=== PATIENT | female | born 1995 | race Caucasian/White ===

== ENCOUNTER 2022-08-15 23:28 | Emergency (ER) | payer MEDICAID, SELFPAY ==
[2022-08-15 23:29] VITALS: BP 133/83; PULSE 62; RESP 16; TEMP 36.2; O2SAT 97; BMI 24.2
--- NOTE | 2022-08-16 00:06 | CT_ITS ---
EXAM: CT ABDOMEN AND PELVIS WITH INTRAVENOUS CONTRAST CLINICAL INDICATION: RLQ pain TECHNIQUE: Helically acquired images were obtained of the abdomen and pelvis with intravenous contrast. This CT exam was performed using one or more of the following dose reduction techniques: automated exposure control, adjustment of the mA and/or kV according to patient size, and/or use of iterative reconstruction technique. This report was created using [employer] report generation technology. CONTRAST: IV 100mL Isovue-370 RADIATION DOSE: Total DLP: 341.10 mGy-cm. COMPARISON: None. FINDINGS: LOWER THORAX: Unremarkable. Lung bases are clear. No significant pericardial effusion. No coronary artery calcifications visualized. ABDOMEN: LIVER: Unremarkable. Homogeneous. No focal mass. GALLBLADDER AND BILE DUCTS: Unremarkable. No calcified gallstones. No gallbladder distention or wall edema. No intra- or extrahepatic biliary ductal dilation. PANCREAS: Unremarkable. No focal cystic or solid mass. SPLEEN: Unremarkable. Normal size without focal cystic or solid mass. ADRENALS: Unremarkable. No nodules. KIDNEYS AND URETERS: Unremarkable. Normal renal size and position. No hydronephrosis. No renal or obstructing ureteral stones. STOMACH AND BOWEL: Moderate amount of formed stool throughout the colon. No stomach or bowel distention. No focal inflammatory change. PELVIS: APPENDIX: Normal. No evidence of acute appendicitis. BLADDER: Unremarkable. REPRODUCTIVE: Normal-sized uterus and ovaries. The left ovary contains a 2.3 cm ovoid thin-walled cystic focus with slight rim enhancement, consistent with an involuting ovarian cyst. ABDOMEN and PELVIS: INTRAPERITONEAL SPACE: Unremarkable. No ascites or other fluid collection. No free air. BONES/JOINTS: Unremarkable. No suspicious lytic or blastic abnormality. SOFT TISSUES: Unremarkable. No discrete abdominal or pelvic wall hernia. VASCULATURE: Abdominal aorta is non-dilated. 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 The distal duodenum is also compressed but there is no duodenal distention to indicate superior mesenteric artery syndrome. LYMPH NODES: Unremarkable. No enlarged lymph nodes. No clustered pericecal lymph nodes are seen. CT/Abdomen/Pelvis W IV Cont ONLY IMPRESSION: Normal appendix. Moderate amount of formed stool within the colon. Involuting left ovarian cyst. No findings of small bowel obstruction or obstructive uropathy. Electronically Signed: Artie Woodruff MD at 1:26 EST ,
[2022-08-16 00:15] LABS: Absolute Neutrophil Count 6.3 X10^3/uL (2.0-7.7); Eosinophil# 0.22 X10^3/uL; Eosinophils% 2.2 % (0-5); Hematocrit 41.1 % (37-47); Hemoglobin 13.6 g/dL (12.0-15.0); Lymphocyte % 27.7 % (19-41); Mean Corp Hgb Conc 33.1 g/dL (32-36); Mean Corpuscular Hgb 30.3 pg (27.0-32.0); Mean Corpuscular Volume 91.5 fL (81-99); Mean Platelet Vol. 11.2 fl (6.2-12.0); Monocyte# 0.65 X10^3/uL; Monocyte% 6.4 % (0-10); NRBC Flagged by Analyzer 0 % (0-5); Neutrophil # 6.32 X10^3/uL (2.7-7.7); Neutrophil % 62.4 % (47-70); Platelet Count 200 K/mm3 (150-450); RBC Distribution Width CV 12.9 % (11.6-14.6); RBC Distribution Width SD 43.2 fl (35.1-43.9); Red Blood Count 4.49 M/mm3 (4.2-5.4); White Blood Count 10.1 K/mm3 (4.4-11.0)
[2022-08-16 00:19] LABS: Color, Urine Yellow (Yellow); Glucose, Dipstick Normal (Normal); Ketone-Dipstick Negative (Negative); Leukocyte Esterase-Dipstick Negative /ul (Negative); Mucous, Urine 0 SEEN /hpf (<or=2+); Nitrite-Dipstick Negative (Negative); Occult Blood-Urine 10 /ul (Negative); Protein-Dipstick Negative (Negative); Specific Gravity, Urine 1.005 (1.002-1.030); Squamous Epithelial Cells - UA 0 SEEN /hpf (5-10); Urine Bilirubin Dipstick Negative (Negative); Urine Clarity Clear (Clear); Urine Urobilinogen Normal (Normal); White Blood Cells 0 SEEN /hpf (0-5)
[2022-08-16] MEDS: 0.9% Normal Saline 1,000 ML 999 ML IV (00:22)
[2022-08-16] MEDS: Ondansetron 4 MG/2 ML Vial IV (00:22)
[2022-08-16] MEDS: Ketorolac 30 MG/ML Syringe IV (00:23)
[2022-08-16 00:25] LABS: Bacteria RARE /hpf (None Seen); Red Blood Cells-Urine 0-5 SEEN /hpf (0-5)
[2022-08-16 00:33] LABS: AST(SGOT) 73 U/L (15-37); Alanine Aminotransfer ALT/SGPT 74 U/L (13-56); Alkaline Phosphatase 73 U/L (45-117); Anion Gap 4 (5-15); BUN 7 mg/dL (7-18); BUN/Creat Ratio 10.4 RATIO (10-20); Bilirubin, Direct 0.13 mg/dL (0.00-0.30); Calcium,Total 8.6 mg/dL (8.5-10.1); Chloride 108 mmol/L (98-107); Creatinine, Serum 0.67 mg/dL (0.55-1.02); EST Glomerular Filtration Rate 113 mL/min (>60); Est Glom Filt Rate - Afr Amer 137 mL/min (>60); Glucose 107 mg/dL (74-106); Lipase 136 U/L (73-393); Potassium 3.8 mmol/L (3.5-5.1); Sodium Level 140 mmol/L (136-145)
[2022-08-16 00:40] LABS: Internal QC Validated? YES +Cl - CLEAR BKGD; Pregnancy, Urine Negative Negative
--- NOTE | 2022-08-16 01:59 | EDS_ITS ---
HPI History of Present Illness Chief Complaint: Abd Pain Narrative Narrative: Patient is a 26-year-old female with past medical history of anxiety/depression with previous opioid and alcohol abuse currently on Vivitrol. She states that around 7:00 this evening she noticed some pain in her right lower abdomen. She states it came on mildly dull and then increased throughout the evening. She states that she has been nauseous associated with the pain but denies any vomiting. Patient denies any vaginal bleeding or dysuria or concern for . She denies any trauma or excessive activity prior to the pain beginning. She states that since the pain has steadily progressed she is concerned for possible intestinal infection and therefore comes in for evaluation [facility] Medical History (Updated 08/16/22 @ 03:[address] Moreno Longoria, DO) Alcohol abuse Anxiety Depression Heart murmur Home Medications buspirone 10 mg tablet 7.5 mg PO BID 08/15/22 [History Last Taken Unknown] lurasidone 20 mg tablet (Latuda) 20 mg PO DAILY 08/15/22 [History Last Taken Unknown] docusate sodium 100 mg capsule (Colace) 100 mg PO BID 7 days #14 caps 08/16/22 [Rx Last Taken Unknown] polyethylene glycol 3350 17 gram oral powder packet (Miralax) 17 g PO DAILY #30 ea 08/16/22 [Rx Last Taken Unknown] Allergy/AdvReac Type Severity Reaction Status Date / Time Penicillins Allergy Hives Verified 08/15/22 23:30 Social History Smoking Status: Current every day smoker tobacco type: cigarettes ROS ROS ED Constitutional Constitutional ED: Denies chills or fever(s) ENT ENT ED: Denies sore throat Cardiovascular Cardiovascular: Denies chest pain Respiratory/Chest Respiratory/Chest: Denies cough or dyspnea Gastrointestinal Gastrointestinal: Reports abdominal pain and nausea; Denies diarrhea or vomiting Genitourinary Genitourinary ED: Denies dysuria or hematuria Musculoskeletal Musculoskeletal: Denies back pain or myalgias Integumentary Denies rash Neurologic Neurologic: Denies headache(s) Hematologic/Lymphatic Hematologic/Lymphatic: Denies easy bleeding or easy bruising EXAM Physical Exam Const Vital Signs: 08/15/22 23:29 08/16/22 02:09 Temperature 97.2 F L Temperature Source Temporal Pulse Rate 62 Respiratory Rate 16 16 Blood Pressure 133/83 H Blood Pressure Mean 99 Pulse Ox 97 Oxygen Delivery Method Room Air Positive well nourished and well developed General Appearance ED: well developed HEENT Reports moist mucous membranes Eyes PERRL and EOMs intact bilaterally General Eye ED: Negative for scleral icterus Neck supple Resp normal respiratory effort and clear to auscultation bilaterally Cardio regular rate and regular rhythm Rate: other Other Details: Radial pulses are plus 2 out of 4 bilaterally are equal and symmetric GI non-distended GI Narrative: Abdomen is soft and nondistended with normoactive bowel sounds. Patient has pain with palpation in the right lower quadrant without voluntary guarding or rigidity. No pulsatile mass. Auscultation: normoactive bowel sounds Palpation: soft Back/Spine no CVA tenderness Extremity normal to inspection Neuro oriented x3 and CN's II-XII intact bilaterally Sensorium / Orientation: alert Psych mental status grossly normal Skin no rashes or lesions noted General Skin Exam: Negative for jaundice MDM MDM MDM Narrative Medical decision making narrative: Patient presented to the ER with stable vitals and a nonsurgical abdomen. However with her pain being in the right lower quadrant and slightly worsening over the last few hours there is concern she developed a atypical presentation for appendicitis ovarian cyst or possible kidney stone urinary tract infection. Therefore basic labs were obtained as well as a CT scan with IV contrast. Labs revealed no clinically significant findings. CT scan showed a left ovarian cyst but this would not explain her right-sided pain and there was also constipation noted. The appendix was seen and was noted to be normal. Therefore this time based on the location of her pain along with her overall negative work-up I feel this is probably related to constipation. With the CAT scan showing a left ovarian cyst but no right-sided 1 I do not feel there is need for emergent ultrasound. Patient will be given MiraLAX and Colace to help with constipation but as her work-up was overall negative and on reevaluation her abdomen remains soft and nonsurgical she is otherwise safe for discharge. Lab Data Attestation: I reviewed the patient's lab results. Labs: Laboratory Results - last 24 hr 08/15/22 08/15/22 08/16/22 23:39 23:39 00:12 WBC 10.1 RBC 4.49 Hgb 13.6 Hct 41.1 MCV 91.5 MCH 30.3 MCHC 33.1 RDW Std Deviation 43.2 RDW Coeff of Kalyn 12.9 Plt Count 200 MPV 11.2 Immature Gran % (Auto) 0.300 Neut % (Auto) 62.4 Lymph % (Auto) 27.7 Cooper % (Auto) 6.4 Eos % (Auto) 2.2 Baso % (Auto) 1.0 Absolute Neuts (auto) 6.3 Absolute Lymphs (auto) 2.80 Nucleated RBC % 0 Sodium 140 Potassium 3.8 Chloride 108 H Carbon Dioxide 28.0 Anion Gap 4 L BUN 7 Creatinine 0.67 Estim Creat Clear Calc 107.10 Est GFR (MDRD) Af Amer 137 Est GFR (MDRD) Non-Af 113 BUN/Creatinine Ratio 10.4 Glucose 107 H Calcium 8.6 Total Bilirubin 0.40 Direct Bilirubin 0.13 AST 73 H ALT 74 H Alkaline Phosphatase 73 Total Protein 7.0 Albumin 4.0 Globulin 3.0 Lipase 136 Urine Color Yellow Urine Clarity Clear Urine pH 7.0 Ur Specific [place] 1.005 Urine Protein Negative Urine Glucose (UA) Normal Urine Ketones Negative Urine Occult Blood 10 H Urine Nitrite Negative Urine Bilirubin Negative Urine Urobilinogen Normal Ur Leukocyte Esterase Negative Urine RBC 0-5 SEEN Urine WBC 0 SEEN Ur Squamous Epith Cells 0 SEEN Urine Bacteria RARE Urine Mucus 0 SEEN Urine Test 08/16/22 00:12 WBC RBC Hgb Hct MCV MCH MCHC RDW Std Deviation RDW Coeff of Kalyn Plt Count MPV Immature Gran % (Auto) Neut % (Auto) Lymph % (Auto) Cooper % (Auto) Eos % (Auto) Baso % (Auto) Absolute Neuts (auto) Absolute Lymphs (auto) Nucleated RBC % Sodium Potassium Chloride Carbon Dioxide Anion Gap BUN Creatinine Estim Creat Clear Calc Est GFR (MDRD) Af Amer Est GFR (MDRD) Non-Af BUN/Creatinine Ratio Glucose Calcium Total Bilirubin Direct Bilirubin AST ALT Alkaline Phosphatase Total Protein Albumin Globulin Lipase Urine Color Urine Clarity Urine pH Ur Specific [place] Urine Protein Urine Glucose (UA) Urine Ketones Urine Occult Blood Urine Nitrite Urine Bilirubin Urine Urobilinogen Ur Leukocyte Esterase Urine RBC Urine WBC Ur Squamous Epith Cells Urine Bacteria Urine Mucus Urine Test Negative Radiography Diagnostic Testing: Clinical Impression(s) from Imaging Studies Abdomen/Pelvis CT 08/16/22 00:06 IMPRESSION: Normal appendix. Moderate amount of formed stool within the colon. Involuting left ovarian cyst. No findings of small bowel obstruction or obstructive uropathy. Electronically Signed: Artie Woodruff MD at 1:26 EST , Discharge Plan Triage Chief Complaint: Abd Pain ED Provider: Moreno Longoria Dx/Rx/DC Orders Clinical Impression: Nonspecific abdominal pain, Constipation, Cyst of left ovary Instructions: Abdominal Pain, ED Constipation (Adult) Prescriptions: New polyethylene glycol 3350 [Miralax] 17 gram powder in packet 17 g PO DAILY Qty: 30 0RF docusate sodium [Colace] 100 mg capsule 100 mg PO BID 7 Days Qty: 14 0RF No Action buspirone [BuSpar] 10 mg Tablet 7.5 mg PO BID Latuda 20 mg Tablet 20 mg PO DAILY Rx Instructions: must administer with food (at least 350 calories) Primary Care Provider: Care Physician,No Primary Referrals: Ashlyn Watson, [Med Staff - [employer] Laboratory Assistant] - Care Physician,No Primary [Primary Care Provider] - Activity Restrictions/Additional Instructions: Your CT scan did not show any signs of acute appendicitis or kidney stone. It did show changes consistent with constipation. Please take the medication prescribed as directed to help with this. If you have any further concerns or worsening of symptoms please return to the ER for repeat evaluation. Disposition Disposition: Home, Self Care Discharge Date/Time: 08/16/22 02:14
[2022-08-16 02:09] VITALS: RESP 16
== END 2022-08-16 02:14 | disposition home or self-care (01) ==
PROVIDERS: Emergency Provider Emergency Medicine; Visit Provider Emergency Medicine
DX: R10.31 Right lower quadrant pain (principal); K59.00 Constipation, unspecified; N83.202 Unspecified ovarian cyst, left side; F32.A Depression, unspecified; F41.9 Anxiety disorder, unspecified; F17.210 Nicotine dependence, cigarettes, uncomplicated; Z79.899 Other long term (current) drug therapy
CPT/HCPCS: 74177; 80048; 80076; 81001; 81025; 83690; 85025; 96374; 96375; 99285; J7030; Q9967; J2405

== ENCOUNTER 2023-06-16 13:13 | Inpatient (IN) | payer MEDICAID, SELFPAY ==
[2023-06-16 13:14] VITALS: BP 162/100; PULSE 96; RESP 16; TEMP 36.4; O2SAT 98; BMI 23.3
--- NOTE | 2023-06-16 13:40 | EDS_ITS ---
HPI History of Present Illness Chief Complaint: Substance Abuse Informant: patient Onset/Context/Timing Onset: Yesterday Context: Gradual Onset Timing: Continuous Worsened by: Nothing Relieved by: Nothing Associated Symptoms Associated Symptoms: Positive for diarrhea*, palpatations and no; Negative for vomiting*, fever*, rash*, seizure, tremor, change in mental status, suicidal ideation or homicidal ideation Narrative Narrative: Presents requesting detox from alcohol. Patient states she drinks approximately 12 beers per day. Patient states her last drink was yesterday. Patient denies any nausea or vomiting but admits to some diarrhea. Patient admits to some palpitations. Patient denies any suicidal homicidal ideations. Patient denies any seizures or tremors. Patient denies any chance of . Patient states she has never been through detox in the past. PFSH PFSH Medical History Alcohol abuse Anxiety Anxiety and depression Depression Heart murmur Migraines Smoker Substance abuse Tobacco use Home Medications docusate sodium 100 mg capsule (Colace) 100 mg PO BID 7 days #14 caps 08/16/22 [Rx Last Taken Unknown] buspirone 10 mg tablet 10 mg PO BID anxiety 06/16/23 [History Last Taken Unknown] lurasidone 20 mg tablet (Latuda) 20 mg PO .hs depression 06/16/23 [History Last Taken Unknown] naltrexone microspheres 380 mg intramuscular suspension,extended release (Vivitrol) See Rx Instructions IM .COMPLEX 06/16/23 [History Last Taken Unknown] Allergy/AdvReac Type Severity Reaction Status Date / Time Penicillins Allergy Hives Verified 06/16/23 13:14 Family History (Updated 06/16/23 @ 14:[address] Verona Pickard MD) Mother COPD (chronic obstructive pulmonary disease) Alcohol abuse Opiate addiction Father Alcohol abuse Surgical History (Updated 06/16/23 @ 13:[address] Dariusz Rosas, DO) Hx of wisdom tooth extraction Social History (Updated 06/16/23 @ 14:[address] Verona Pickard MD) household members: other details: Her sister and her sister's father. Smoking Status: Current every day smoker tobacco type: cigarettes Smoking packs per day: 1 Smoking cigarettes per day: 20.0 alcohol intake: current alcohol intake frequency: 3 or more drinks per day details: 6 Tall boys daily or 12 regular beers daily substance use type: former substance user and marijuana ROS ROS ED Constitutional Constitutional ED: Denies chills or fever(s) Eyes Eyes: Denies blurry vision or change in vision ENT ENT ED: Denies rhinorrhea or sore throat Cardiovascular Cardiovascular: Reports palpitations and racing heartbeat; Denies chest pain Respiratory/Chest Respiratory/Chest: Denies cough or dyspnea Gastrointestinal Gastrointestinal: Reports diarrhea; Denies nausea or vomiting Genitourinary Genitourinary ED: Denies dysuria or hematuria Musculoskeletal Musculoskeletal: Denies back pain or neck pain Integumentary Denies abscess or rash Neurologic Neurologic: Denies headache(s) or weakness Allergic/Immunologic Allergic/Immunologic ED: Denies mouth swelling or urticaria EXAM Physical Exam Const Vital Signs: 06/16/23 13:14 Temperature 97.6 F L Temperature Source Temporal Pulse Rate 96 Respiratory Rate 16 Blood Pressure 162/100 H Blood Pressure Mean 120 Pulse Ox 98 Oxygen Delivery Method Room Air Positive well nourished and well developed General Appearance ED: well developed and NAD HEENT Reports moist mucous membranes Neck supple and no JVD Resp normal respiratory effort and clear to auscultation bilaterally Cardio regular rate and regular rhythm GI soft to palpation, non-tender and non-distended Extremity General Extremety ED: Negative for edema or tenderness General Extremity: Negative for edema Neuro oriented x3, CN's II-XII intact bilaterally and no sensory deficits noted [place] Coma Scale: document GCS findings Spontaneous Obeys Commands Oriented 15 Sensorium / Orientation: alert Speech: speech normal Motor Exam: strength 5/5 throughout Psych mental status grossly normal and thought process normal Skin General Skin Exam: Negative for jaundice MDM MDM MDM Narrative Medical decision making narrative: Screening labs will be obtained. CBC will be obtained to assess for leukocytosis and anemia. Comprehensive metabolic profile will be obtained to assess for hepatic function, renal function, and electrolyte abnormality. Urine tox screen will be obtained to assess for substance abuse. Serum alcohol level will be obtained to assess for alcohol intoxication. Serum hCG will be obtained to assess for . Lab Data Attestation: I reviewed the patient's lab results. Labs: Laboratory Results - last 24 hr 06/16/23 13:45 WBC 10.7 RBC 4.17 L Hgb 12.4 Hct 39.4 MCV 94.5 MCH 29.7 MCHC 31.5 L RDW Std Deviation 48.6 H RDW Coeff of Kalyn 14.0 Plt Count 223 MPV 10.7 Immature Gran % (Auto) 0.300 Neut % (Auto) 82.1 H Lymph % (Auto) 9.6 L [place] % (Auto) 6.5 Eos % (Auto) 0.7 Baso % (Auto) 0.8 Absolute Neuts (auto) 8.8 H Absolute Lymphs (auto) 1.02 Nucleated RBC % 0 Sodium 138 Potassium 3.8 Chloride 107 Carbon Dioxide 26.0 Anion Gap 5 BUN 4 L Creatinine 0.80 Estim Creat Clear Calc 88.93 Est GFR (MDRD) Af Amer 111 Est GFR (MDRD) Non-Af 92 BUN/Creatinine Ratio 5.0 L Glucose 99 Calcium 8.8 Phosphorus 2.9 Magnesium 2.0 Total Bilirubin 0.50 AST 19 ALT 21 Alkaline Phosphatase 68 Total Protein 6.7 Albumin 3.7 Globulin 3.0 Albumin/Globulin Ratio 1.2 Serum , Qual NEGATIVE Ethyl Alcohol < 3.0 Hep Bs Antigen Non-Reactive Hep Bs Antibody Non-Reactive Hepatitis C Antibody Non-Reactive HIV 1&2 Antibody Non-Reactive Management Discussion w/another healthcare provider: Hospitalist Treatment and Re-Evaluation Narrative: Case was discussed with the hospitalist. She will admit the patient to her service. Patient understood and was agreeable with the plan. All questions were answered. Discharge Plan Dx/Rx/DC Orders Clinical Impression: Desire for detoxification, Alcohol withdrawal Disposition Disposition: Acute Care Hospital [facility] Discharge Date/Time: 06/16/23 15:50
[2023-06-16 13:56] LABS: Absolute Lymphocyte Count 1.02 X10^3/uL (0.83-4.51); Absolute Neutrophil Count 8.8 X10^3/uL (2.0-7.7); Basophil# 0.08 X10^3/uL; Basophil% 0.8 % (0-1); Eosinophil# 0.07 X10^3/uL; Eosinophils% 0.7 % (0-5); Hematocrit 39.4 % (37-47); Hemoglobin 12.4 g/dL (12.0-15.0); Lymphocyte # 1.02 X10^3/ul (0.83-4.51); Lymphocyte % 9.6 % (19-41); Mean Corp Hgb Conc 31.5 g/dL (32-36); Mean Corpuscular Hgb 29.7 pg (27.0-32.0); Mean Corpuscular Volume 94.5 fL (81-99); Mean Platelet Vol. 10.7 fl (6.2-12.0); Monocyte# 0.69 X10^3/uL; Monocyte% 6.5 % (0-10); NRBC Flagged by Analyzer 0 % (0-5); Neutrophil # 8.76 X10^3/uL (2.7-7.7); Neutrophil % 82.1 % (47-70); Platelet Count 223 K/mm3 (150-450); RBC Distribution Width SD 48.6 fl (35.1-43.9); Red Blood Count 4.17 M/mm3 (4.2-5.4); White Blood Count 10.7 K/mm3 (4.4-11.0)
[2023-06-16 14:13] LABS: ALB/GLOB Ratio 1.2 RATIO (0.9-2.4); AST(SGOT) 19 U/L (15-37); Alanine Aminotransfer ALT/SGPT 21 U/L (13-56); Albumin, Serum 3.7 g/dL (3.2-5.0); Alkaline Phosphatase 68 U/L (45-117); Anion Gap 5 (5-15); BUN 4 mg/dL (7-18); Calcium,Total 8.8 mg/dL (8.5-10.1); Chloride 107 mmol/L (98-107); EST Glomerular Filtration Rate 92 mL/min (>60); Est Glom Filt Rate - Afr Amer 111 mL/min (>60); Estimated Creatinine Clearance 88.93 ml/min; Glucose 99 mg/dL (74-106); Potassium 3.8 mmol/L (3.5-5.1); Protein, Total 6.7 g/dL (6.4-8.2); Sodium Level 138 mmol/L (136-145)
--- NOTE | 2023-06-16 14:15 | CM.ED ---
Addendum entered by Terrie Carlin 06/16/23 19:23: Treatment Navigator updated. LEANDRO Dodd Original Note: Social Work Referral Source: case find Referral Reason: [facility]/ PCP SW met with patient and introduced self and role as [facility] SW. Patient lying on hospital bed and agreeable to speak with SW. SW inquired about patient's insurance and current PCP. Patient verified insurance and reports no current PCP. SW provided patient with a list of local PCPs in network with patient's insurance and accepting new patients. Patient was receptive towards list. SW then engaged patient in conversation regarding interest in [facility]. SW briefly reviewed rules including it being a voluntary program, personal belongings being locked up as well as meeting with the detox coordinator for after care planning. Patient reports understanding and states her current plan is to return to [facility] for their residential program. Patient reports no other questions or needs currently. SW remains available if needs arise. Plan: [facility] LEANDRO Dodd
[2023-06-16 14:18] LABS: Internal QC Validated? YES +Cl - CLEAR BKGD; Pregnancy, Serum, hCG Quali. NEGATIVE Negative
[2023-06-16 14:21] LABS: Alcohol, Blood (Medical)-Serum < 3.0 mg/dL
--- NOTE | 2023-06-16 14:53 | PCM.HP.STD ---
HPI - General General Date of Admission: 06/16/23 Date of Service: 06/16/23 Chief Complaint: Acute EtOH withdrawal symptoms onset. HPI Narrative The patient is a 27 y/o F w/ PMHx: Polysubstance abuse w/ history of Opiate abuse clean since 09/2022 and EtOH abouse (currently ~ 12 normal size beers or 6 tall boys daily x 5 months) and from prior records had been on Vivitrol which was confirmed (EtOH last use 2 am on day of presentation, Opiates last use 09/2022, using Cannabis smoked occasionally), Anxiety and Depression, Tobacco use who presents to the [facility] ED on 06/16/23 with ongoing EtOH abuse abuse with acute EtOH withdrawal, onset starting this early afternoon, progressively worsening with onset of nausea, mild tremors, restlessness, fatigue prompting ED evaluation. The patient is interested in attaining sober status. She was recently evaluated in [place] and was administered phenobarbital in the ED but there was no available slots for acute inpatient treatment thus she was discharged to follow-up with her substance program who sent her here today per her report. Work-up in the ED included T 97.6, HR 96, BP 162/100, RR 16, 98% on RA, CBC w/ WBC 10.7, Hgb 12.4, Plts 223 without marked shift, CMP no marked appearing, testing negative, EtOH <3, pending UDS upon requested evaluation of patient. [facility] Medical History Alcohol abuse Anxiety and depression Heart murmur Tobacco use Home Medications docusate sodium 100 mg capsule (Colace) 100 mg PO BID 7 days #14 caps 08/16/22 [Rx Last Taken Unknown] naltrexone microspheres 380 mg intramuscular suspension,extended release (Vivitrol) See Rx Instructions IM .COMPLEX 06/16/23 [History Last Taken Unknown] Allergy/AdvReac Type Severity Reaction Status Date / Time Penicillins Allergy Hives Verified 06/16/23 13:14 Family History (Updated 06/16/23 @ 14:[address] Verona Pickard MD) Mother COPD (chronic obstructive pulmonary disease) Alcohol abuse Opiate addiction Father Alcohol abuse Surgical History (Updated 06/16/23 @ 13:[address] Dariusz Rosas, DO) Hx of wisdom tooth extraction Social History (Updated 06/16/23 @ 14:[address] Verona Pickard MD) household members: other details: Her sister and her sister's father. Smoking Status: Current every day smoker tobacco type: cigarettes Smoking packs per day: 1 Smoking cigarettes per day: 20.0 alcohol intake: current alcohol intake frequency: 3 or more drinks per day details: 6 Tall boys daily or 12 regular beers daily substance use type: former substance user and marijuana ROS ROS Narrative Admission Review of Systems: CONSTITUTIONAL: No weight loss, fever, chills, + weakness or fatigue. HEENT: Eyes: No visual loss, blurred vision, double vision or yellow sclerae. Ears, Nose, Throat: No hearing loss, sneezing, congestion, runny nose or sore throat. SKIN: No rash or itching, lesions, wounds. CARDIOVASCULAR: No chest pain, chest pressure or chest discomfort, palpitations, edema, orthopnea, syncopal events. RESPIRATORY: No shortness of breath, cough or sputum, wheezing, hemoptysis. GASTROINTESTINAL: + anorexia, nausea. No vomiting or diarrhea, abdominal pain, melena, BRBPR. GENITOURINARY: No dysuria, frequency, urgency or retention. NEUROLOGICAL: + Mild tremors, mild tactile disturbances, restlessness. No headache, dizziness, syncope, paralysis, ataxia, numbness or tingling in the extremities, focal weakness, change in bowel or bladder control, seizure. MUSCULOSKELETAL: No muscle, back pain, joint pain or stiffness. HEMATOLOGIC: No anemia, bleeding or bruising. LYMPHATICS: No enlarged nodes. No history of splenectomy. PSYCHIATRIC: + history of depression or anxiety. ENDOCRINOLOGIC: + reports of sweating. No cold or heat intolerance. No polyuria or polydipsia. ALLERGIES: + history of hives. Vital Signs Vital Signs Vital Signs: 06/16/23 13:14 Temperature 97.6 F L Temperature Source Temporal Pulse Rate 96 Respiratory Rate 16 Blood Pressure 162/100 H Blood Pressure Mean 120 Pulse Ox 98 Oxygen Delivery Method Room Air Weight Weight: 132 lb Body Mass Index (BMI) 23.3 Physical Exam Narrative Physical Examination: General: Awake, alert, oriented x 3 and cooperative, seated upright in the ED bed, fatigued, mildly tremulous and restless. Skin: Normal color, normal turgor, no icterus, no cyanosis, several tattoos. HEENT: AT/NC, EOMI, PERRLA, moderately dry MM, no carotid bruits or JVD noted. Lungs: CTA bilaterally, moderate effort, mild decrease BL bases, no rales, ronchi or wheezing. Heart: Mildly tachyardic with regular rhythm; no gallop or rub audible. Abdomen: Soft, NTTP, ND, hyperactive BS, no marked appreciated HM. Extremities: No cyanosis, clubbing, or edema. Neurological: Patient awake, alert, oriented as noted, cognitive function intact; pupils equally reactive to light and accommodation, cranial nerves grossly normal, moving all 4 extremities, no focal deficits, strength mildly to moderately globally decreased secondary to acute presentation, mildly tremulous, mild tactile disturbances noted. Psychiatric: Affect appears fatigued, no acute evidence of depressive or anxiety feelings but does have underlying history. Results Lab / Micro Data 06/16/23 13:45 06/16/23 13:45 Labs: Laboratory Results - last 24 hr 06/16/23 13:45: WBC 10.7, RBC 4.17 L, Hgb 12.4, Hct 39.4, MCV 94.5, MCH 29.7, MCHC 31.5 L, RDW Std Deviation 48.6 H, RDW Coeff of Kalyn 14.0, Plt Count 223, MPV 10.7, Immature Gran % (Auto) 0.300, Neut % (Auto) 82.1 H, Lymph % (Auto) 9.6 L, Sampson % (Auto) 6.5, Eos % (Auto) 0.7, Baso % (Auto) 0.8, Absolute Neuts (auto) 8.8 H, Absolute Lymphs (auto) 1.02, Nucleated RBC % 0, Sodium 138, Potassium 3.8, Chloride 107, Carbon Dioxide 26.0, Anion Gap 5, BUN 4 L, Creatinine 0.80, Estim Creat Clear Calc 88.93, Est GFR (MDRD) Af Amer 111, Est GFR (MDRD) Non-Af 92, BUN/Creatinine Ratio 5.0 L, Glucose 99, Calcium 8.8, Total Bilirubin 0.50, AST 19, ALT 21, Alkaline Phosphatase 68, Total Protein 6.7, Albumin 3.7, Globulin 3.0, Albumin/Globulin Ratio 1.2, Serum , Qual NEGATIVE, Ethyl Alcohol < 3.0 Assessment & Plan Assessment/Plan (1) Alcohol withdrawal: PLAN: Plan The patient is a 27 y/o F w/ PMHx: Polysubstance abuse w/ history of Opiate abuse clean since 09/2022 and EtOH abuse, Anxiety and Depression, Tobacco use who presents to the [facility] ED on 06/16/23 with ongoing EtOH abuse abuse with acute EtOH withdrawal. #1. Acute EtOH Withdrawal: Will admit to medical surgical floor, routine labs obtained in the ED upon presentation as noted with penidng UDS only upon evaluation. Given interest in sobriety, will initiate and continue on protocol with taper course of Phenobarbital, scheduled gabapentin for seizure prophylaxis, as needed Catapres, Bentyl, Vistaril, IV fluids, IV antiemetics, Tylenol as needed for pain. Will consult Case management for assistance for transition to next level of rehabilitation care. Mag, phos pending. Maintain on CIWA protocol concurrently. #2. Elevated BP without HTN diagnosis: Notably elevated BP in the ED, suspect related with #1, will continue to monitor, PRN IV hydralazine in the interim. #3. Hx Opiate abuse in conjunction with #1: Will obtain HIV and hepatitis panel given polysubstance use although does denies current usage. Patient currently not candidate for hep C treatment currently as needs to be clean, sober x 6 months, documented attendance NA or AA meetings, counseling and ongoing negative drug screens. Encouraged cannabis cessation. UDS pending. Did of note receive at [place] ED phenobarbital. #4. Anxiety and depression: Patient from previous records 08/2022 had been on buspirone and Latuda, clarifying if this is still correct, will continue once verified. #5. Chronic constipation: Patient with ED visit secondary to constipation per review of records, rx docusate and MiraLAX. Will continue home colace reigmen. #6. Tobacco Abuse: Encouraged cessation, inpatient consultation per RT, NR if desired. #7. DVT: Low risk for type of admission. Charges/Coding Visit Charges Inpatient E&M: 91133 Init Hosp L2
[2023-06-16 15:19] LABS: Phosphorus 2.9 mg/dL (2.5-4.9)
[2023-06-16 15:49] LABS: HIV - WCH Non-Reactive (Nonreactive)
[2023-06-16 15:51] LABS: Amphetamine Urine VISTA NEGATIVE (<1000 ng/mL); Barbiturate Urine VISTA POSITIVE (< 200 ng/mL); Benzodiazepine Urine VISTA NEGATIVE (< 200 ng/mL); Cocaine Urine VISTA NEGATIVE (< 300 ng/mL); Ecstacy Urine VISTA NEGATIVE (< 500 ng/mL); Methadone Urine VISTA NEGATIVE (< 300 ng/mL); PCP Urine VISTA NEGATIVE (< 25 ng/mL); THC Urine VISTA POSITIVE (< 50 ng/mL); Vista UDS pH Range 8
[2023-06-16 15:52] VITALS: BMI 23.4
[2023-06-16 15:59] VITALS: BP 131/87; PULSE 56; RESP 18; TEMP 36.9; O2SAT 100
[2023-06-16] MEDS: Phenobarbital 32.4 MG Tablet 64.8 MG PO ×2 (16:24→20:27)
[2023-06-16] MEDS: Lactated Ringers 1,000 ML 125 ML IV (16:24)
[2023-06-16 17:14] LABS: Hepatitis B Surface Antibody Non-Reactive; Hepatitis B Surface Antigen Non-Reactive (Nonreactive); Hepatitis C Antibody Non-Reactive (Nonreactive)
[2023-06-16 17:51] VITALS: BP 128/82; PULSE 60; RESP 16; TEMP 36.8; O2SAT 100
[2023-06-16 20:20] VITALS: BP 126/64; PULSE 71; RESP 16; TEMP 36.9; O2SAT 100
[2023-06-16] MEDS: hydrOXYzine PAM 25 MG Capsule 50 MG PO (20:27)
[2023-06-16] MEDS: Loperamide 2 MG Capsule PO (20:27)
[2023-06-16] MEDS: Acetaminophen 325 MG Tablet 650 MG PO (20:27)
[2023-06-16] MEDS: traZODone 100 MG Tablet PO (20:27)
[2023-06-17] VITALS (7 sets, daily range): BP systolic 107–125; BP diastolic 54–82; PULSE 58–76; RESP 16–18; TEMP 36.6–37.1; O2SAT 97–100
[2023-06-17] MEDS: Phenobarbital 32.4 MG Tablet 64.8 MG PO ×6 (00:19→21:40)
[2023-06-17] MEDS: hydrOXYzine PAM 25 MG Capsule 50 MG PO (04:39)
--- NOTE | 2023-06-17 07:43 | PCM.PN.HOSP ---
Reason for Visit Reason for Visit: Diagnoses Alcohol use, unspecified with withdrawal, unspecified (06/16/23) Subjective Subjective 27-year-old lady with history of alcohol dependence admitted to regular nursing floor for further management Objective Data Objective Data Vital Signs: Vital Signs Temp Pulse Resp BP Pulse Ox O2 Del Method 97.8 F 58 L 16 112/57 L 100 Room Air 06/17/23 04:38 06/17/23 04:38 06/17/23 04:38 06/17/23 04:38 06/17/23 04:38 06/17/23 04:38 Oxygen Delivery Method Room Air Weight: 60.1 kg Body Mass Index (BMI) 23.4 Intake & Output: Intake and Output for Last 24 Hours 06/15/23 06/16/23 06/17/23 23:59 23:59 23:59 Intake Total 300 / 300 1000 / 1000 Balance 300 / 300 1000 / 1000 Lab / Micro Data 06/16/23 13:45 06/16/23 13:45 Labs: Laboratory Results - last 24 hr 06/16/23 13:45: WBC 10.7, RBC 4.17 L, Hgb 12.4, Hct 39.4, MCV 94.5, MCH 29.7, MCHC 31.5 L, RDW Std Deviation 48.6 H, RDW Coeff of Kalyn 14.0, Plt Count 223, MPV 10.7, Immature Gran % (Auto) 0.300, Neut % (Auto) 82.1 H, Lymph % (Auto) 9.6 L, Glascock % (Auto) 6.5, Eos % (Auto) 0.7, Baso % (Auto) 0.8, Absolute Neuts (auto) 8.8 H, Absolute Lymphs (auto) 1.02, Nucleated RBC % 0, Sodium 138, Potassium 3.8, Chloride 107, Carbon Dioxide 26.0, Anion Gap 5, BUN 4 L, Creatinine 0.80, Estim Creat Clear Calc 88.93, Est GFR (MDRD) Af Amer 111, Est GFR (MDRD) Non-Af 92, BUN/Creatinine Ratio 5.0 L, Glucose 99, Calcium 8.8, Phosphorus 2.9, Magnesium 2.0, Total Bilirubin 0.50, AST 19, ALT 21, Alkaline Phosphatase 68, Total Protein 6.7, Albumin 3.7, Globulin 3.0, Albumin/Globulin Ratio 1.2, Serum , Qual NEGATIVE, Ethyl Alcohol < 3.0, Hep Bs Antigen Non-Reactive, Hep Bs Antibody Non-Reactive, Hepatitis C Antibody Non-Reactive, HIV 1&2 Antibody Non-Reactive 06/16/23 15:12: Urine Opiates Screen NEGATIVE, Urine Methadone Screen NEGATIVE, Ur Barbiturates Screen POSITIVE H, Ur Phencyclidine Scrn NEGATIVE, Ur Amphetamines Screen NEGATIVE, MDMA (Ecstasy) Screen NEGATIVE, U Benzodiazepines Scrn NEGATIVE, Urine Cocaine Screen NEGATIVE, U Cannabinoids Screen POSITIVE H, Ur Drug Screen Comment Physical Exam Narrative GENERAL: cooperative HEENT: Atraumatic; normocephalic EYES; Anicteric, Normal Conjunctiva NECK; supple, normal thyroid, RESPIRATORY: Diminished to auscultation CARDIOVASCULAR: Regular S1 S2, GI: soft, normoactive bowel sounds, : No Renal angle tenderness; EXTREMITIES: No edema, no clubbing, MUSCULOSKELETAL: no muscle wasting NEURO: Awake; no lateralizing signs. SKIN: No Rash PSYCH; Flat affect Assessment & Plan Assessment/Plan (1) Alcohol withdrawal: PLAN: Plan 27-year-old lady with history of alcohol dependence admitted to regular nursing floor for further management 1. Acute alcohol withdrawal ? Admitted to regular nursing floor managed with phenobarb taper in addition to adjuvant therapy for her other symptoms 2. History of opioid dependence ? Currently sober 3. Tobacco dependence - Counseled on cessation, offered nicotine patch for tobacco cravings 4. DVT prophylaxis ? Low risk Time spent in the patient's overall evaluation,decision-making process, review of diagnostic data, adjustment of management, discussion with other providers, nursing nursing and ancillary staff involved in patient's care documentation,35 Minutes Charges/Coding Visit Charges Inpatient E&M: 02386 Subs Hosp L2
[2023-06-17] MEDS: Thiamine Hydrochloride 100 MG Tablet PO (07:59)
[2023-06-17] MEDS: Multivitamins,Ther W-Minerals Tablet 1 TABLET PO (07:59)
[2023-06-17] MEDS: Folic Acid 1 MG Tablet PO (07:59)
--- NOTE | 2023-06-17 11:19 | ADDICTION ---
This information writer met with PT to conduct ASAM, MSE, AUDIT, DUDIT assessments and to plan for d/c. PT A+Ox4 and participated actively. All assessments completed and placed in PT's chart. PT plans to f/u with [facility] at [facility] for follow-up in patient treatment services on Friday or morning depending on symptoms. [facility] will transport to treatment.
[2023-06-17] MEDS: 0.9% Saline Lock 10 ML Syringe IV (21:42)
[2023-06-18] MEDS: Phenobarbital 32.4 MG Tablet 64.8 MG PO ×6 (00:24→21:01)
[2023-06-18 02:00] VITALS: BP 112/61; PULSE 71; RESP 18; TEMP 36.3; O2SAT 99
[2023-06-18 03:32] VITALS: BP 104/59; PULSE 73; RESP 18; TEMP 36.6; O2SAT 100
[2023-06-18 07:45] VITALS: BP 110/56; PULSE 71; RESP 16; TEMP 36.8; O2SAT 100
[2023-06-18] MEDS: Thiamine Hydrochloride 100 MG Tablet PO (07:50)
[2023-06-18] MEDS: Multivitamins,Ther W-Minerals Tablet 1 TABLET PO (07:51)
[2023-06-18] MEDS: Folic Acid 1 MG Tablet PO (07:51)
[2023-06-18 08:20] VITALS: O2SAT 95
[2023-06-18] MEDS: Docusate Sodium 100 MG Capsule PO (09:30)
[2023-06-18 14:43] VITALS: BP 110/53; PULSE 75; RESP 16; TEMP 37.1; O2SAT 100
--- NOTE | 2023-06-18 17:32 | PN.HOSP_ITS ---
Reason for Visit Reason for Visit: Diagnoses Alcohol use, unspecified with withdrawal, unspecified (06/16/23) Subjective Subjective Patient was seen and examined today, I talked with addiction social sciences lecturer who felt that the patient will be ready for discharge tomorrow to inpatient 180. Objective Data Objective Data Vital Signs: Vital Signs Temp Pulse Resp BP Pulse Ox O2 Del Method 98.8 F 75 16 110/53 L 100 Room Air 06/18/23 14:43 06/18/23 14:43 06/18/23 14:43 06/18/23 14:43 06/18/23 14:43 06/18/23 14:43 Oxygen Delivery Method Room Air Weight: 60.1 kg Body Mass Index (BMI) 23.4 Intake & Output: Intake and Output for Last 24 Hours 06/16/23 06/17/23 06/18/23 23:59 23:59 23:59 Intake Total 300 / 300 1000 / 1400 760 / 760 Balance 300 / 300 1000 / 1400 760 / 760 Lab / Micro Data 06/16/23 13:45 06/16/23 13:45 Physical Exam Const alert, oriented x3, no apparent distress and average body habitus General Appearance: cooperative, well kempt and well developed Orientation / Consciousness: awake, oriented to person, oriented to place and oriented to time HEENT normocephalic and moist oral mucous membranes Eyes PERRL, EOMs intact bilaterally and conjunctivae normal Neck supple, no JVD, thyroid normal and no carotid bruits General: trachea midline Resp normal respiratory effort and clear to auscultation bilaterally Auscultation: Negative for rales, rhonchi or wheezes Cardio regular rate, regular rhythm, no murmurs, no rub and no gallops GI normal to inspection, nondistended, normoactive bowel sounds, soft to palpation, non-tender and non-distended Extremity no clubbing, cyanosis or edema Skin no rashes or lesions noted General Skin Exam: no breakdown Neuro oriented x3, CN's II-XII intact bilaterally, no focal motor deficits and no sensory deficits noted Sensorium / Orientation: awake and alert Speech: speech normal Psych affect normal Assessment & Plan Assessment/Plan (1) Alcohol withdrawal: PLAN: Plan 1. Acute alcohol withdrawal-patient will remain on phenobarbital at this time, if patient is medically stable tomorrow she will be discharged to an inpatient detox facility. #2 chronic alcoholism-complicates care, medical course, recovery, and prognosis #3 chronic depression-patient is currently on Latuda #4 chronic anxiety-patient is on BuSpar twice daily Total clinical time spent by myself addressing the patient's medical issues, reviewing all of her data, and collaborating with patient's care team: 35 minutes Charges/Coding Visit Charges Inpatient E&M: 99417 Subs Hosp L2
[2023-06-18 20:58] VITALS: BP 129/88; PULSE 84; RESP 16; TEMP 36.8; O2SAT 100
[2023-06-18] MEDS: 0.9% Saline Lock 10 ML Syringe IV (21:06)
[2023-06-18] MEDS: LURASIDONE HCL 20 MG TABLET PO (21:15)
[2023-06-19 00:40] VITALS: BP 120/61; PULSE 86; RESP 16; TEMP 36.5; O2SAT 100
[2023-06-19] MEDS: Phenobarbital 32.4 MG Tablet 64.8 MG PO ×2 (00:44→05:34)
[2023-06-19 05:31] VITALS: BP 110/63; PULSE 61; RESP 18; TEMP 36.6; O2SAT 99
[2023-06-19 08:29] VITALS: BP 126/71; PULSE 64; RESP 16; TEMP 36.8; O2SAT 100
[2023-06-19] MEDS: Multivitamins,Ther W-Minerals Tablet 1 TABLET PO (08:37)
[2023-06-19] MEDS: Thiamine Hydrochloride 100 MG Tablet PO (08:37)
[2023-06-19] MEDS: Folic Acid 1 MG Tablet PO (08:37)
[2023-06-19 09:08] VITALS: O2SAT 100
--- NOTE | 2023-06-19 11:18 | DCINST_ITS ---
Discharge Instructions Diet Discharge Diet: No restrictions Activity Discharge Activity: Return to Normal Activity Weight Bearing Status: Weight bearing as tolerated Follow Up Care Test Results: Test results from this visit will be discussed in further detail at your follow- up appointment, if applicable. Discharge Plan Admission Admit Date/Time: 06/16/23 15:00 Primary Reason for Your Visit: alcohol detox Attending Provider: Suraj Ford Primary Care Provider: Care Physician,No Primary Consulting Providers: Verona Pickard; Abel Hyatt Discharge Orders/Prescriptions Prescriptions: Continued docusate sodium [Colace] 100 mg capsule 100 mg PO BID 7 Days Qty: 14 0RF Vivitrol 380 mg suspension,extended rel recon See Rx Instructions IM .COMPLEX Rx Instructions: intramuscularly 1 X MONTH; buspirone 10 mg tablet 10 mg PO BID lurasidone [Latuda] 20 mg tablet 20 mg PO .hs Rx Instructions: must administer with food (at least 350 calories) Referrals / Follow Up: Care Physician,No Primary [Primary Care Provider] - Disposition Disposition (needs filled in before D/C Order can be placed): Home, Self Care
--- NOTE | 2023-06-19 11:30 | DS.PCM_ITS ---
Providers Date of Admission: 06/16/23 Date of Discharge: 06/19/23 Primary Care Physician: No Primary Care Phys Reason For Visit: ALCOHOL WITHDRAWAL, DESIRE FOR DETOX Diagnosis Discharge Diagnosis (1) Alcohol withdrawal: Status: Acute Code(s): F10.939 - Alcohol use, unspecified with withdrawal, unspecified Plan 1. Acute alcohol withdrawal-patient will remain on phenobarbital at this time, if patient is medically stable tomorrow she will be discharged to an inpatient detox facility. #2 chronic alcoholism-complicates care, medical course, recovery, and prognosis #3 chronic depression-patient is currently on Latuda #4 chronic anxiety-patient is on BuSpar twice daily Total clinical time spent by myself addressing the patient's medical issues, reviewing all of her data, and collaborating with patient's care team: 35 minutes Medications at Discharge Home Medications docusate sodium 100 mg capsule (Colace) 100 mg PO BID 7 days #14 caps 08/16/22 buspirone 10 mg tablet 10 mg PO BID anxiety 06/16/23 lurasidone 20 mg tablet (Latuda) 20 mg PO .hs depression 06/16/23 naltrexone microspheres 380 mg intramuscular suspension,extended release (Vivitrol) See Rx Instructions IM .COMPLEX 06/16/23 Hospital Course Operations None Procedures None Summary of Care Provided Minutes Spent on Discharge: 30 Hospital Course: This 27-year old white female presented to the emergency room at [facility] requesting services for alcohol detox. Patient had recently been seen in the emergency room in [place] and given phenobarbital but was not able to be admitted to an alcohol detox program. Lab done in the ER here showed a tox screen positive for cannabinoids and barbiturates, CBC was unremarkable, chemistry panel was unremarkable. Patient was admitted to [place] [id number], orders were entered using alcohol detox order set, she was seen by addiction long term care social worker and arrangements were made for her to go to an inpatient women's detox facility at the time of discharge from the hospital. Patient had no untoward events during her hospitalization. On 06/19/2023, patient was seen and examined: On examination she appeared in good health and spirits, she does not appear to be in any distress. Vital signs as documented. Skin warm and dry and without overt rashes. Neck without JVD, thyroid appears normal, trachea is midline, neck is supple. Lungs clear, normal air movement was noted. Heart exam notable for regular rhythm, normal sounds and absence of murmurs, rubs or gallops. Abdomen unremarkable and without evidence of organomegaly, masses, or abdominal aortic enlargement, bowel sounds are present in all 4 quadrants, no abdominal tenderness was noted. Extremities nonedematous, no cyanosis was noted, no clubbing was noted. Neuro: Cranial nerves II through XII are grossly intact, no focal motor deficits were noted, sensation to light touch and pinprick is intact, motor exam 5/5 throughout. Psych: Patient is alert and oriented x3, she does not appear anxious or depressed, she does not appear agitated. On 06/19/2023, patient was seen and examined and felt to be in stable condition for discharge to an inpatient detox facility. Weight / BMI Weight Weight: 60.1 kg Body Mass Index (BMI) 23.4 ABG / Lab / Microbiology Data 06/16/23 13:45 06/16/23 13:45 D/C Instructions Discharge Diet: No restrictions Weight Bearing Status: Weight bearing as tolerated Meaningful Use Info Meaningful Use Diagnoses (Choose all that apply): None applicable Discharge Plan Admission Admit Date/Time: 06/16/23 15:00 Primary Reason for Your Visit: alcohol detox Attending Provider: Suraj Ford Primary Care Provider: Care Physician,No Primary Consulting Providers: Verona Pickard; Abel Hyatt Discharge Orders/Prescriptions Prescriptions: Continued docusate sodium [Colace] 100 mg capsule 100 mg PO BID 7 Days Qty: 14 0RF Vivitrol 380 mg suspension,extended rel recon See Rx Instructions IM .COMPLEX Rx Instructions: intramuscularly 1 X MONTH; buspirone 10 mg tablet 10 mg PO BID lurasidone [Latuda] 20 mg tablet 20 mg PO .hs Rx Instructions: must administer with food (at least 350 calories) Referrals / Follow Up: Care Physician,No Primary [Primary Care Provider] - Disposition Disposition (needs filled in before D/C Order can be placed): Home, Self Care Charges/Coding Visit Charges Inpatient E&M: 83388 Disch Hosp
== END 2023-06-19 11:40 | disposition home or self-care (01) | DRG 775 ==
LOC: ED 13:58 → MS3 15:00
PROVIDERS: Admitting Provider Family Medicine; Emergency Provider Emergency Medicine; Visit Provider Internal Medicine
DX: F10.239 Alcohol dependence with withdrawal, unspecified (principal); F17.210 Nicotine dependence, cigarettes, uncomplicated; F32.A Depression, unspecified; K59.09 Other constipation; F41.9 Anxiety disorder, unspecified; Z79.899 Other long term (current) drug therapy
CPT/HCPCS: 80053; 80307; 82077; 83735; 84100; 84703; 85025; 86703; 86706; 86803; 87340; 97802; 99284; J7120; A4216

== ENCOUNTER 2023-07-07 23:33 | Emergency (ER) | payer MEDICAID, SELFPAY ==
[2023-07-07 23:35] VITALS: BP 144/96; PULSE 113; RESP 18; TEMP 36.6; O2SAT 100; BMI 24.1
--- NOTE | 2023-07-07 23:44 | EDS_ITS ---
HPI History of Present Illness Chief Complaint: Nausea/Vomiting Informant: patient Narrative Narrative: Presenting with subjective fevers myalgias nausea vomiting started this morning. Yesterday felt slight dizziness. Urine is darker. Denies diarrhea. Vomiting x3. Abdominal cramping. Denies sick contacts. No sore throat no cough no dysuria. Nonvaccinated for COVID. Has had COVID in the past without any hospitalization. Of note 3 weeks ago was admitted for alcohol detox, states she is in the program has not started drinking again. PFSH PFSH Medical History Alcohol abuse Anxiety Anxiety and depression Depression Desire for detoxification Heart murmur Migraines Smoker Substance abuse Tobacco use Home Medications lurasidone 20 mg tablet (Latuda) 20 mg PO QHS depression 06/16/23 [History Last Taken Unknown] naltrexone microspheres 380 mg intramuscular suspension,extended release (Vivitrol) See Rx Instructions IM .COMPLEX 06/16/23 [History Last Taken Unknown] buspirone 7.5 mg tablet 7.5 mg PO BID 07/07/23 [History Last Taken Unknown] melatonin 5 mg tablet 5 mg PO QHS 07/07/23 [History Last Taken Unknown] cephalexin 500 mg capsule 500 mg PO Q12 #14 CAPSULES 07/08/23 [Rx Last Taken Unknown] ondansetron 4 mg disintegrating tablet 4 mg PO Q8H PRN PRN Nausea #10 tabs 07/08/23 [Rx Last Taken Unknown] Allergy/AdvReac Type Severity Reaction Status Date / Time Penicillins Allergy Hives Verified 07/07/23 23:34 Family History (Updated 06/16/23 @ 14:[address] Verona Pickard MD) Mother COPD (chronic obstructive pulmonary disease) Alcohol abuse Opiate addiction Father Alcohol abuse Surgical History Hx of wisdom tooth extraction Social History (Updated 06/16/23 @ 14:[address] Verona Pickard MD) household members: other details: Her sister and her sister's father. Smoking Status: Current every day smoker tobacco type: cigarettes alcohol intake: current alcohol intake frequency: 3 or more drinks per day details: 6 Tall boys daily or 12 regular beers daily substance use type: former substance user and marijuana ROS ROS ED Constitutional Constitutional ED: Reports fever(s); Denies chills or sweats Eyes Eyes: Denies change in vision ENT ENT ED: Denies dysphagia or sore throat Cardiovascular Cardiovascular: Denies chest pain, leg edema, palpitations or racing heartbeat Respiratory/Chest Respiratory/Chest: Denies cough, dyspnea or dyspnea on exertion Gastrointestinal Gastrointestinal: Reports abdominal pain, nausea and vomiting; Denies diarrhea Genitourinary Genitourinary ED: Denies dysuria, hematuria or urinary frequency Musculoskeletal Musculoskeletal: Reports myalgias; Denies back pain, extremity pain or neck pain Integumentary Denies rash or wounds Neurologic Neurologic: Denies headache(s), paresthesias or weakness EXAM Physical Exam Const Vital Signs: 07/07/23 23:35 07/08/23 01:33 Temperature 97.8 F Temperature Source Temporal Pulse Rate 113 H 81 Respiratory Rate 18 16 Blood Pressure 144/96 H 121/74 H Blood Pressure Mean 112 89 Pulse Ox 100 99 Positive well nourished and well developed General Appearance ED: well developed and NAD HEENT Reports dry mucous membranes normocephalic and atraumatic Mouth ED: Yes dry mucous membranes Mouth: dry mucous membranes Eyes PERRL, EOMs intact bilaterally and conjunctivae normal General Eye ED: Yes normal appearance of both eyes Neck no lymphadenopathy and supple General: Negative for tenderness Chest Wall Chest: Negative for tenderness Resp normal respiratory effort and normal air movement Effort and Inspection: symmetric chest movement; Negative for respiratory distress Cardio regular rhythm and no murmurs Rate: tachycardic Peripheral Pulses: pulses 2+ throughout GI normal to inspection, nondistended, normoactive bowel sounds and non-tender GI Narrative: Negative Sen's or McBurney's tenderness. Palpation: Negative for guarding or rebound tenderness present Back/Spine no CVA tenderness and no thoracic nor lumbar tenderness Extremity normal to inspection General Extremety ED: Negative for edema or tenderness General Extremity: Negative for edema Neuro oriented x3 and no sensory deficits noted Sensorium / Orientation: awake and alert Skin no rashes or lesions noted and no wounds MDM MDM MDM Narrative Medical decision making narrative: Interventions / MDM: Differential diagnosis: Dehydration, viral syndrome, UTI Diagnosis considered but do not suspect: No clinical cholecystitis or appendicitis My EKG interpretation: N/A Imaging independently reviewed and interpreted by myself: N/A External documents reviewed: N/A Test considered but not ordered:N/A ED course: Afebrile tachycardic with dry mucosal membranes. Clinical dehydration. Will establish IV for fluids we will check basic labs, COVID and flu sent for evaluation. Laboratory studies stable. COVID and flu negative. Urine with concern for change culture sent. Reports suprapubic pain darker urine stating similar symptoms with UTI in the past. Is covered with Rocephin IV, continue oral antibiotics with antiemetics as needed. She is tolerating oral fluids in ED. Heart rate improved with fluids. Outpatient follow-up with return precautions. Re-evaluation: stable Disposition discussed with patient/family/significant other: Patient Case discussed with consulting clinician: N/A This note was generated with [employer] dictation software. It may contain incorrect words, spelling, and punctuation that were not noted in checking the note before signing. Lab Data Attestation: I reviewed the patient's lab results. Labs: Laboratory Results - last 24 hr 07/08/23 07/08/23 00:15 00:20 WBC 7.3 RBC 4.31 Hgb 12.7 Hct 39.1 MCV 90.7 MCH 29.5 MCHC 32.5 RDW Std Deviation 44.9 H RDW Coeff of Kalyn 13.5 Plt Count 206 MPV 11.2 Immature Gran % (Auto) 0.300 Neut % (Auto) 81.4 H Lymph % (Auto) 9.4 L Andrew % (Auto) 5.8 Eos % (Auto) 2.1 Baso % (Auto) 1.0 Absolute Neuts (auto) 5.9 Absolute Lymphs (auto) 0.68 L Nucleated RBC % 0 Sodium 139 Potassium 3.5 Chloride 106 Carbon Dioxide 26.0 Anion Gap 7 BUN 9 Creatinine 0.77 Estim Creat Clear Calc 92.39 Est GFR (MDRD) Af Amer 117 Est GFR (MDRD) Non-Af 97 BUN/Creatinine Ratio 11.7 Glucose 111 H Calcium 8.8 Urine Color Yellow Urine Clarity Clear Urine pH 6.5 Ur Specific [place] 1.020 Urine Protein 30 H Urine Glucose (UA) Normal Urine Ketones 150 A* Urine Occult Blood 10 H Urine Nitrite Positive H Urine Bilirubin 1 H Urine Urobilinogen 4 H Ur Leukocyte Esterase 100 H Urine RBC 0 SEEN Urine WBC 0-5 SEEN Ur Squamous Epith Cells 5-10 SEEN Urine Bacteria 1+ Urine Mucus 0 SEEN Discharge Plan Triage Chief Complaint: Nausea/Vomiting ED Provider: Mason Zhao Dx/Rx/DC Orders Clinical Impression: UTI (urinary tract infection), Nausea & vomiting, Dehydration Instructions: Urinary Tract Infections in Women, ED Dehydration (Adult) Prescriptions: New cephalexin [cephalexin] 500 mg capsule 500 mg PO Q12 Qty: 14 0RF ondansetron [ondansetron] 4 mg tablet,disintegrating 4 mg PO Q8H PRN PRN (Reason: Nausea) Qty: 10 0RF No Action Vivitrol 380 mg suspension,extended rel recon See Rx Instructions IM .COMPLEX Rx Instructions: intramuscularly 1 X MONTH; lurasidone [Latuda] 20 mg tablet 20 mg PO QHS Rx Instructions: must administer with food (at least 350 calories) buspirone 7.5 mg tablet 7.5 mg PO BID Patient Comments: TAKE 1 TABLET BY MOUTH TWICE A DAY melatonin 5 mg tablet 5 mg PO QHS Patient Comments: TAKE 1-2 TABLETS BY MOUTH EVERY NIGHT NEEDED Primary Care Provider: Care Physician,No Primary Referrals: Risa Conteh [Non-Staff] - 1 Week if not improving Care Physician,No Primary [Primary Care Provider] - Activity Restrictions/Additional Instructions: COVID influenza negative. Clinical dehydration. Normal kidney function numbers. Urine with infection. Status post Rocephin IV. Take antibiotic as prescribed. Use nausea medicines as needed. Continue oral fluids for hydration. Disposition Disposition: Home, Self Care Discharge Date/Time: 07/08/23 02:05
[2023-07-08] MEDS: Ondansetron 4 MG/2 ML Vial IV (00:15)
[2023-07-08] MEDS: 0.9% Normal Saline (1000mL) 1,000 ML 1000 ML IV (00:15)
[2023-07-08 00:31] LABS: Mucous, Urine 0 SEEN /hpf (<or=2+); Red Blood Cells-Urine 0 SEEN /hpf (0-5)
[2023-07-08 00:40] LABS: Color, Urine Yellow (Yellow); Glucose, Dipstick Normal (Normal); Leukocyte Esterase-Dipstick 100 /ul (Negative); Nitrite-Dipstick Positive (Negative); Occult Blood-Urine 10 /ul (Negative); Protein-Dipstick 30 mg/dl (Negative); Urine Clarity Clear (Clear); Urine Urobilinogen 4 mg/dl (Normal); Urine pH 6.5 (5.0 - 8.0)
[2023-07-08 00:41] LABS: Urine Bilirubin Dipstick 1 mg/dL (Negative)
[2023-07-08 00:41] LABS: Absolute Lymphocyte Count 0.68 X10^3/uL (0.83-4.51); Absolute Neutrophil Count 5.9 X10^3/uL (2.0-7.7); Basophil# 0.07 X10^3/uL; Eosinophil# 0.15 X10^3/uL; Eosinophils% 2.1 % (0-5); Hematocrit 39.1 % (37-47); Hemoglobin 12.7 g/dL (12.0-15.0); Lymphocyte # 0.68 X10^3/ul (0.83-4.51); Lymphocyte % 9.4 % (19-41); Mean Corp Hgb Conc 32.5 g/dL (32-36); Mean Corpuscular Hgb 29.5 pg (27.0-32.0); Mean Corpuscular Volume 90.7 fL (81-99); Mean Platelet Vol. 11.2 fl (6.2-12.0); Monocyte# 0.42 X10^3/uL; Monocyte% 5.8 % (0-10); NRBC Flagged by Analyzer 0 % (0-5); Neutrophil # 5.93 X10^3/uL (2.7-7.7); Neutrophil % 81.4 % (47-70); Platelet Count 206 K/mm3 (150-450); RBC Distribution Width CV 13.5 % (11.6-14.6); RBC Distribution Width SD 44.9 fl (35.1-43.9); Red Blood Count 4.31 M/mm3 (4.2-5.4); White Blood Count 7.3 K/mm3 (4.4-11.0)
[2023-07-08 00:42] LABS: Ketone-Dipstick 150 mg/dl (Negative)
[2023-07-08 00:50] LABS: White Blood Cells 0-5 SEEN /hpf (0-5)
[2023-07-08 00:51] LABS: Bacteria 1+ /hpf (None Seen); Squamous Epithelial Cells - UA 5-10 SEEN /hpf (5-10)
[2023-07-08] MEDS: Ceftriaxone 1 GM/50 ML BAG IV (01:30)
[2023-07-08 01:31] LABS: Anion Gap 7 (5-15); BUN 9 mg/dL (7-18); BUN/Creat Ratio 11.7 RATIO (10-20); Calcium,Total 8.8 mg/dL (8.5-10.1); Chloride 106 mmol/L (98-107); Creatinine, Serum 0.77 mg/dL (0.55-1.02); EST Glomerular Filtration Rate 97 mL/min (>60); Est Glom Filt Rate - Afr Amer 117 mL/min (>60); Estimated Creatinine Clearance 92.39 ml/min; Glucose 111 mg/dL (74-106); Potassium 3.5 mmol/L (3.5-5.1); Sodium Level 139 mmol/L (136-145)
[2023-07-08 01:33] VITALS: BP 121/74; PULSE 81; RESP 16; O2SAT 99
== END 2023-07-08 02:05 | disposition home or self-care (01) ==
PROVIDERS: Emergency Provider Emergency Medicine; Visit Provider Emergency Medicine
DX: R11.2 Nausea with vomiting, unspecified (principal); E86.0 Dehydration; N39.0 Urinary tract infection, site not specified; F41.8 Other specified anxiety disorders; Z79.899 Other long term (current) drug therapy; F17.210 Nicotine dependence, cigarettes, uncomplicated
CPT/HCPCS: 80048; 81001; 85025; 87086; 87088; 87428; 96361; 96365; 96375; 99283; J7030; J7050; A4216; J2405